=== PATIENT | male | born 1975 | race Caucasian/White ===

== ENCOUNTER 2017-01-03 22:57 | Emergency (ER) | payer MEDICAID, OTHER ==
[2017-01-04] MEDS ORDERED: NS 0.9% 1000 ML* 1,000 ML IV ONE (00:43)
[2017-01-04] MEDS ORDERED: Pantoprazole IV* 40 MG IV ONE (00:43)
--- NOTE | 2017-01-04 01:38 | ED ---
Abdominal Pain/Male - HPI Summary HPI Summary: 41 y/o male who denies PMH, no recent medications, on parol currently, states for past few days has had abdominal pain, lower, both sides with associated nausea/ vomiting, vomiting EOD which is blood streaked as well as blood in his stool. no hard stools, varying in color from "caramel" to dark brown, no black stools/ tarry stools. patient states has a history of hemorrhoids as well as gastric ulcers, dx'd in 2001? with two other episodes 2004 and 2006. no tx done , patient does not like invasive procedures and does not like needles. Does not know if he was + for h pylori, poor historian overall. - History of Current Complaint Chief Complaint: EDAbdPain Stated Complaint: ABD PAIN Time Seen by Provider: 01/04/17 00:23 Hx Obtained From: Patient, Family/[employer] - SO Onset/Duration: Gradual Onset, Lasting Days - ~ 2 weeks Timing: Intermittent Severity Initially: Mild Severity Currently: Mild Pain Intensity: 3 Pain Scale Used: 0-10 Numeric - Allergies/Home Medications Allergies/Adverse Reactions: Allergies Allergy/AdvReac Type Severity Reaction Status Date / Time No Known Allergies Allergy Verified 01/03/17 23:14 PMH/Surg Hx/FS Hx/Imm Hx Previously Healthy: No - gastric ulcers no tx in past Infectious Disease History: No Infectious Disease History: Denies: Traveled Outside the [place] in Last 30 Days - Social History Alcohol Use: Rare Substance Use Type: Reports: None Smoking Status (MU): Never Smoked Tobacco Review of Systems Positive: Abdominal Pain, Vomiting, Diarrhea, Nausea All Other Systems Reviewed And Are Negative: Yes Physical Exam Triage Information Reviewed: Yes Vital Signs On Initial Exam: Initial Vitals Temp Pulse Resp BP Pulse Ox 98.0 F 86 18 141/89 97 01/03/17 23:11 01/03/17 23:11 01/03/17 23:11 01/03/17 23:11 01/03/17 23:11 Vital Signs Reviewed: Yes Appearance: Positive: Well-Appearing, No Pain Distress, Well-Nourished Skin: Positive: Warm, Skin Color Reflects Adequate Perfusion Head/Face: Positive: Normal Head/Face Inspection Neck: Positive: Supple, Nontender, No Lymphadenopathy Respiratory/Lung Sounds: Positive: Clear to Auscultation, Breath Sounds Present Cardiovascular: Positive: Normal, RRR, Pulses are Symmetrical in both Upper and Lower Extremities - PT, rad/ ulnar 2+ b/l, S1, S2 Abdomen Description: Positive: No Organomegaly, Soft, Guarding - RLQ, McBurney' s Point Tenderness, Other: - tender over RLQ, mild epigastric tenderness, mild suprapubic tenderness. Negative: CVA Tenderness (R), CVA Tenderness (L), Distended, Peritoneal Signs, Pulsatile Mass, Splenomegaly Bowel Sounds: Positive: Present Neurological: Positive: Normal, Sensory/Motor Intact, Alert, Oriented to Person Place, Time, CN Intact II-III Psychiatric: Positive: Normal AVPU Assessment: Alert - Anderson Coma Scale Best Eye Response: 4 - Spontaneous Best Motor Response: 6 - Obeys Commands Best Verbal Response: 5 - Oriented Coma Scale Total: 15 Diagnostics - Vital Signs Vital Signs Temp Pulse Resp BP Pulse Ox 01/04/17 00:30 76 18 139/89 96 01/04/17 00:15 80 96 01/04/17 00:13 160/98 01/03/17 23:11 98.0 F 86 18 141/89 97 - Laboratory Result Diagrams: 01/04/17 01:24 01/04/17 01:24 Lab Statement: Any lab studies that have been ordered have been reviewed, and results considered in the medical decision making process. Re-Evaluation - Re-Evaluation First Eval Re-Evaluation Time: 04:55 Comment: Discussed CT results and plan to D/C. Abdominal Pain Fem Course/Dx - Course Course Of Treatment: SIgned out to Dr. Romero @ 2A - Diagnoses Differential Diagnosis/HQI/PQRI: ACS, Appendicitis, Constipation, Diverticulitis Provider Diagnoses: Abdominal pain Discharge - Discharge Plan Condition: Fair Disposition: HOME Prescriptions: Pantoprazole TAB (NF) [Protonix TAB (NF)] 40 mg PO DAILY #30 tab Patient Education Materials: Acute Abdominal Pain (ED) Referrals: [facility] PHYSICIAN REFERRAL [Outside] - 3 Days No Primary Care Phys,NOPCP [Primary Care Provider] -
[2017-01-04 01:41] LABS: Hematocrit 42 % (42-52); Hemoglobin 14.9 g/dl (14.0-18.0); Mean Corpuscular HGB Conc 35 g/dl (31-36); Mean Corpuscular Hemoglobin 31 pg (27-31); Mean Corpuscular Volume 89 fL (80-94); Mean Platelet Volume 8 um3 (7.4-10.4); Red Blood Count 4.74 10^6/ul (4.0-5.4); Red Cell Distribution Width 13 % (10.5-15); White Blood Count 9.2 10^3/ul (3.5-10.8)
[2017-01-04 01:52] LABS: Albumin 3.8 g/dL (3.2-5.2); BUN/Creatinine Ratio 17.5 (8-20); C Reactive Protein 5.5 mg/L (< 5.00); EGFR African American 80.7 (>60); EGFR Non-African American 62.8 (>60); Potassium 3.4 mmol/L (3.5-5.0); Total Bilirubin 0.3 mg/dL (0.2-1.0); Total Protein 6.8 g/dL (6.4-8.9)
[2017-01-04 02:35] LABS: Urine Bilirubin Negative (Negative); Urine Glucose Negative (Negative); Urine Nitrite Negative (Negative)
[2017-01-04] MEDS ORDERED: Iohexol 300* (CONTRAST) 10 ML SDV IV ONE (03:17)
[2017-01-04 04:52] VITALS: BP 111/67
--- NOTE | 2017-01-04 06:04 | ED ---
Eloise Victor Rebecca, scribed for John Romero on 01/04/17 at 0519 . Progress - Progress Note Progress Note: Pt was signed out from [facility], pending disposition, awaiting CT Abd /Pel. - Results/Orders Results/Orders: CT Abd/Pel, as read by radiology, reveals: No bowel obstruction, free air, or free fluid. negative for diverticulitis or colitis. Normal appendix. Normal kidneys, urinary tracts, and urinary bladder. Normal liver. Contracted gallbladder. Normal spleen. Normal pancreas. Normal adrenal glands. Note made of multiple small retroperitoneal lymph nodes. Uncertain if these are simply reactive. Followup recommended. ED physician reviewed radiology report and agree.s Re-Evaluation - Re-Evaluation First Eval Re-Evaluation Time: 04:55 Comment: Discussed CT results and plan to D/C. Course/Dx - Course Course Of Treatment: Pt was signed out from BR[facility], pending disposition, awaiting CT Abd/Pel. CT Abd/Pel reveals no acute findings. Pt's condition is stable and he will be D/C to home with Dx of abdominal pain and a follow up with [facility] physician referral with Rx for Protonix. He understands and agrees. Elevated BP noted. - Diagnoses Provider Diagnoses: Abdominal pain The documentation as recorded by the Eloise gallardo Rebecca accurately reflects the service I personally performed and the decisions made by , John Romero.
--- NOTE | 2017-01-04 08:23 | RAD ---
CLINICAL HISTORY: Left lower quadrant pain, bloody stool COMPARISON: None TECHNIQUE: Multiple contiguous axial CT scans were obtained of the abdomen and pelvis after the administration of intravenous contrast. Coronal and sagittal multiplanar reformations are submitted for review. Oral contrast was not administered. Delayed images were obtained through the abdomen and pelvis. FINDINGS: LUNG BASES: The lung bases are clear. LIVER: The liver is normal in shape, size, contour, and attenuation. BILE DUCTS: There is no intrahepatic or extrahepatic biliary dilatation. GALLBLADDER: The gallbladder is normal, without pericholecystic inflammatory change. PANCREAS: The pancreas is normal, without mass or ductal dilatation. SPLEEN: Normal in size and appearance. UPPER GI TRACT: Evaluation of the gastrointestinal tract is limited by incomplete gastric distention. The upper GI tract is unremarkable. SMALL BOWEL AND MESENTERY: The small bowel is normal in contour, course, and caliber. There is no obstruction or dilatation. COLON: The colon is normal in contour, course, caliber. There is no pericolonic inflammatory change. ADRENALS: Normal bilaterally. KIDNEYS: The kidneys are normal in shape, size, contour, and axis. There is no hydronephrosis or nephrolithiasis. BLADDER: The bladder is smooth in contour. PELVIC ORGANS: The prostate gland is normal. The seminal vesicles are symmetric. AORTA: There is calcific atherosclerotic disease of the abdominal aorta and its branches, without aneurysmal dilatation IVC: Unremarkable LYMPH NODES: There are innumerable subcentimeter short axis retroperitoneal lymph nodes along the periaortic and aortocaval space without lymphadenopathy by size criteria. ABDOMINAL WALL: There is no evidence for abdominal wall hernia. BONES AND SOFT TISSUES: Mild degenerative changes are noted OTHER: None IMPRESSION: 1. THERE ARE INNUMERABLE SUBCENTIMETER SHORT AXIS RETROPERITONEAL LYMPH NODES WITHOUT LYMPHADENOPATHY BY SIZE CRITERIA. THESE ARE OF UNCERTAIN CLINICAL SIGNIFICANCE. 2. NO ACUTE CT PATHOLOGY OF THE VISUALIZED ABDOMEN OR PELVIS.
== END 2017-01-04 04:59 | disposition home or self-care (01) ==
LOC: ED 22:57
DX: R10.9 Unspecified abdominal pain (principal)
CPT/HCPCS: 36415; 74177; 80053; 81003; 82140; 82150; 82272; 83605; 83690; 85025; 85610; 86140; 96374; 99283; Q9967

== ENCOUNTER 2019-04-18 09:19 | Emergency (ER) | payer MEDICAID ==
[2019-04-18 09:31] VITALS: BP 148/93
--- NOTE | 2019-04-18 10:20 | UC ---
Complaint Male HPI - HPI Summary HPI Summary: 43-year-old male presents with 5 day history of redness and swelling of the foreskin of his penis. States he has been trying to clean himself well with a mild soap and water. Also states that the day prior to onset of symptoms he used some baby powder which he does not typically do. Patient also reports he has been having intermittent generalized abdominal pain for the past couple of months. Notes pain improves after eating. Has occasional episodes of watery diarrhea. Last episode was 2 days ago. Patient has been incarcerated and was just released 4 days ago. Denies fever, chills, nausea, vomiting, blood in stool, melena, back or flank pain, dysuria, frequency, urgency, hematuria, penile discharge, testicular pain or swelling. - History of Current Complaint Chief Complaint: UCGU Stated Complaint: ABDOMINAL PAIN Time Seen by Provider: 04/18/19 10:12 Hx Obtained From: Patient Pain Intensity: 8 - Allergies/Home Medications Allergies/Adverse Reactions: Allergies Allergy/AdvReac Type Severity Reaction Status Date / Time No Known Allergies Allergy Verified 04/18/19 09:30 PMH/Surg Hx/FS Hx/Imm Hx Previously Healthy: Yes - Surgical History Surgical History: None - Family History Known Family History: Positive: Non-Contributory - Social History Occupation: Unemployed Lives: With Family Alcohol Use: None Substance Use Type: None Smoking Status (MU): Never Smoked Tobacco Review of Systems All Other Systems Reviewed And Are Negative: Yes Constitutional: Negative: Fever, Chills Respiratory: Positive: Negative Cardiovascular: Positive: Negative Gastrointestinal: Positive: Abdominal Pain, Diarrhea. Negative: Vomiting, Nausea Genitourinary: Positive: Other - See HPI. Negative: Dysuria, Hematuria, Frequency, Urgency Musculoskeletal: Positive: Negative Neurological: Positive: Negative Is Patient Immunocompromised?: No Physical Exam - Summary Physical Exam Summary: GENERAL APPEARANCE: Well developed, well nourished, alert and cooperative, and appears to be in no acute distress. EYES: Conjunctiva clear. No drainage. EARS: External auditory canals and tympanic membranes clear, hearing grossly intact. NOSE: No nasal discharge. THROAT: Pharynx normal No tonsilar inflammation, swelling, exudate, or lesions. Uvula midline. NECK: Neck supple, non-tender without lymphadenopathy. CARDIAC: Normal S1 and S2. No S3, S4 or murmurs. Rhythm is regular. There is no peripheral edema, cyanosis or pallor. Extremities are warm and well perfused. Capillary refill is less than 2 seconds. Peripheral pulses intact. LUNGS: Clear to auscultation without rales, rhonchi, wheezing or diminished breath sounds. ABDOMEN: Positive bowel sounds. Soft, nondistended, nontender. No guarding or rebound. No masses or hepatosplenomegally. No CVA tenderness. UROGENITAL: Uncircumcised. Erythema and mild edema of the foreskin and glans of the penis with small amount of thick white discharge. Testicles are smooth, nontender, without edema. MUSKULOSKELETAL: ROM intact to all extremities. No joint erythema or tenderness. Normal muscular development. Normal gait. SKIN: Skin normal color, texture and turgor with no lesions or eruptions. Triage Information Reviewed: Yes Vital Signs: Initial Vital Signs Temp 98.4 F 04/18/19 09:25 Pulse 72 04/18/19 09:25 Resp 16 04/18/19 09:25 BP 148/93 04/18/19 09:25 Pulse Ox 100 04/18/19 09:25 Vital Signs Reviewed: Yes Complaint Male Course/Dx - Course Course Of Treatment: 43-year-old male presents with 5 day history of redness and swelling of the foreskin of his penis. States he has been trying to clean himself well with a mild soap and water. Also states that the day prior to onset of symptoms he used some baby powder which he does not typically do. Patient also reports he has been having intermittent generalized abdominal pain for the past couple of months. Notes pain improves after eating. Has occasional episodes of watery diarrhea. Last episode was 2 days ago. Patient has been incarcerated and was just released 4 days ago. Denies fever, chills, nausea, vomiting, blood in stool, melena, back or flank pain, dysuria, frequency, urgency, hematuria, penile discharge, testicular pain or swelling. Afebrile. Hypertensive otherwise vital signs stable. Patient had a soft, nondistended, nontender abdomen, no hepatosplenomegaly, erythema and mild edema of the foreskin and glans of the penis with small amount of thick white discharge, the testicles are smooth, nontender, without edema, and remainder of exam was unremarkable. Discussed with the patient that the erythema and swelling of the foreskin and glans of the penis was likely from a candidal infection although I could not rule out the possibility a contact dermatitis with his reports of using baby powder prior to the onset of symptoms. We also discussed that this could be a bacterial infection although less likely especially with the discharge that was noted. He is to use clotrimazole cream twice daily until symptoms clear. With the chronicity of his abdominal pain and benign exam I'm recommending outpatient evaluation of his symptoms and have referred him to the [facility]. He is to follow-up at the clinic within 7 days. Anticipatory guidance and warning symptoms requiring immediate evaluation in the emergency room referred with the patient. Verbalizes understanding and agrees with plan of care. - Differential Dx/Diagnosis Differential Diagnosis/HQI/PQRI: Epididymitis, Incarcerated Hernia, Prostatitis , Testicular Torsion, Urinary Tract Infection, Other - PUD, gall bladder disease , peptic ulcer, gastroenteritis, STI Provider Diagnosis: Balanitis, Abdominal pain Discharge ED - Sign-Out/Discharge Documenting (check all that apply): Patient Departure All imaging exams completed and their final reports reviewed: No Studies - Discharge Plan Condition: Stable Disposition: HOME Prescriptions: Clotrimazole 1% CREAM* [Clotrimazole 1%*] 1 applic TOPICAL BID #1 tube Patient Education Materials: Acute Abdominal Pain (ED), Balanitis (ED) Referrals: No Primary Care Phys,NOPCP [Primary Care Provider] - [facility] [Outside] - 7 Days (Call for appointment) Additional Instructions: The urine test performed in the clinic today showed no evidence of an infection. Your symptoms are likely from a yeast infection of the foreskin of the penis, a condition called balanitis. Be sure to clean the penis with some warm water twice daily making sure you retract the foreskin and then pat the area dry. Apply a clotrimazole cream to the affected area twice a day before pulling the foreskin back over the tip of the penis. Continue to use clotrimazole until symptoms are fully cleared. I am unsure of the exact cause of your abdominal pain however based on your history and exam I do not believe that this is an emergent condition and I'm recommending that you follow up as an outpatient for further evaluation. Follow-up at the [facility] within 7 days for further evaluation and treatment. Call for an appointment. Seek immediate medical attention in the emergency room if you develop a fever greater than 100.5 F, have a severe abdominal pain, persistent vomiting, blood in your vomit or bowel movements, increased swelling of the penis, testicular pain, you are unable to urinate, or have any worsening of symptoms. - Billing Disposition and Condition Condition: STABLE Disposition: Home - Attestation Statements Provider Attestation: I was available for consult. This patient was seen by the ROXANNE. The patient was not presented to, seen by, or examined by me. -Owen
== END 2019-04-18 10:58 | disposition home or self-care (01) ==
LOC: UCEAST 09:19
DX: N48.1 Balanitis (principal); R10.84 Generalized abdominal pain; R19.7 Diarrhea, unspecified; I10 Essential (primary) hypertension
CPT/HCPCS: 81003; 99212; G0463